=== PATIENT | male | born 1945 | race Caucasian/White ===

== ENCOUNTER 2020-01-10 14:54 | Emergency (ER) | payer OTHER, MEDICARE ==
[~2020-01-10] VITALS: Ht 170.2 cm; Wt 94.0 kg
[2020-01-10 15:13] VITALS: BP 134/72
[2020-01-10 15:51] LABS: BASOPHILS # (AUTO) 0.1 X10'3 (0-0.2); EOSINOPHILS # (AUTO) 0.6 X10'3 (0-0.9); EOSINOPHILS % (AUTO) 6.9 % (0-6); HEMATOCRIT 34.3 % (42.0-52.0); HEMOGLOBIN 11.5 g/dl (14.0-17.9); LYMPHOCYTES # (AUTO) 1.5 X10'3 (1.1-4.8); MEAN CORPUSCULAR HEMOGLOBIN 31.8 PG (27.0-31.0); MEAN CORPUSCULAR HGB CONC 33.4 g/dL (33.0-36.5); MEAN CORPUSCULAR VOLUME 95.2 FL (78-98); MEAN PLATELET VOLUME 7.4 FL (7.4-10.4); MONOCYTES # (AUTO) 0.7 X10'3 (0-0.9); MONOCYTES % (AUTO) 9.2 % (2-12); NEUTROPHILS # (AUTO) 5.3 X10'3 (1.8-7.7); NEUTROPHILS % (AUTO) 64.9 % (42-75); PLATELET COUNT 299 X10'3 (140-440); RED BLOOD COUNT 3.61 X10'6 (4.70-6.10); RED CELL DISTRIBUTION WIDTH 14.1 % (11.5-14.5); WHITE BLOOD COUNT 8.2 X10'3 (4.5-11.0)
[2020-01-10 16:09] LABS: ALANINE AMINOTRANSFERASE 25 U/L (12-78); ALBUMIN 3.7 G/DL (3.4-5.0); ALBUMIN/GLOBULIN RATIO 1.1 (1.1-1.5); ALKALINE PHOSPHATASE 96 IU/L (46-116); ANION GAP 7 (8-16); ASPARTATE AMINO TRANSFERASE 19 U/L (10-37); BILIRUBIN,TOTAL 0.3 MG/DL (0.1-1.0); BLOOD UREA NITROGEN 34 MG/DL (7-18); BUN/CREATININE RATIO 21.3 (5.4-32.0); CALCIUM 9.1 MG/DL (8.5-10.1); CHLORIDE 106 MMOL/L (99-107); GLUCOSE 85 MG/DL (70-104); POTASSIUM 4.4 MMOL/L (3.5-5.1); SODIUM 141 MMOL/L (135-145); TOTAL CARBON DIOXIDE 27.8 MMOL/L (24-32); TOTAL PROTEIN 7.2 G/DL (6.4-8.2); eGFR 42 ML/MIN
== END 2020-01-10 16:43 | disposition home or self-care (01) ==
LOC: ER 14:55
DX: R07.9 Chest pain, unspecified (principal)
CPT/HCPCS: 36415; 71045; 80053; 83880; 84484; 85025; 93005; 99285

== ENCOUNTER 2020-03-13 12:20 | Day surgery (SDC) | payer MEDICARE, OTHER ==
[2020-03-08 10:48] LABS: BASOPHILS # (AUTO) 0.1 X10'3 (0-0.2); BASOPHILS % (AUTO) 0.7 % (0-1); EOSINOPHILS # (AUTO) 0.3 X10'3 (0-0.9); HEMOGLOBIN 10.9 g/dl (14.0-17.9); LYMPHOCYTES # (AUTO) 1.3 X10'3 (1.1-4.8); LYMPHOCYTES % (AUTO) 16.1 % (21-51); MEAN CORPUSCULAR HEMOGLOBIN 31.4 PG (27.0-31.0); MEAN CORPUSCULAR HGB CONC 33.1 g/dL (33.0-36.5); MEAN CORPUSCULAR VOLUME 94.7 FL (78-98); MEAN PLATELET VOLUME 7.2 FL (7.4-10.4); MONOCYTES # (AUTO) 0.7 X10'3 (0-0.9); MONOCYTES % (AUTO) 9.3 % (2-12); NEUTROPHILS # (AUTO) 5.5 X10'3 (1.8-7.7); NEUTROPHILS % (AUTO) 69.9 % (42-75); PLATELET COUNT 290 X10'3 (140-440); RED BLOOD COUNT 3.48 X10'6 (4.70-6.10); WHITE BLOOD COUNT 7.9 X10'3 (4.5-11.0)
[2020-03-08 10:57] LABS: ALBUMIN 3.3 G/DL (3.4-5.0); ANION GAP 6 (8-16); BLOOD UREA NITROGEN 40 MG/DL (7-18); BUN/CREATININE RATIO 24.7 (5.4-32.0); CALCIUM 9.1 MG/DL (8.5-10.1); CHLORIDE 106 MMOL/L (99-107); CREATININE 1.62 MG/DL (0.60-1.10); GLUCOSE 103 MG/DL (70-104); POTASSIUM 4.8 MMOL/L (3.5-5.1); SODIUM 141 MMOL/L (135-145); TOTAL CARBON DIOXIDE 28.6 MMOL/L (24-32); eGFR 42 ML/MIN
[2020-03-08 11:00] LABS: PARTIAL THROMBOPLASTIN TIME 26 SECONDS (22-32)
[~2020-03-13] VITALS: Ht 170.2 cm; Wt 91.7 kg
[2020-03-13] VITALS (9 sets, daily range): BP systolic 120–167; BP diastolic 62–89
[2020-03-13] MEDS ORDERED: ASPI-1053 PO (12:42)
[2020-03-13] MEDS ORDERED: CHOL100025 PO (12:42)
[2020-03-13] MEDS ORDERED: METO25TA6 PO (12:42)
[2020-03-13] MEDS ORDERED: FAMO20TA8 PO (12:42)
[2020-03-13] MEDS ORDERED: CITA20TA28 PO (12:42)
[2020-03-13] MEDS ORDERED: SIMV-45 PO (12:42)
[2020-03-13] MEDS ORDERED: NITR0.4T51 SL (12:42)
[2020-03-13] MEDS ORDERED: [UNRECOGNIZED DRUG - OTHER] (12:42)
[2020-03-13] MEDS ORDERED: normal saline 1,000 ML IV SCH (12:45)
[2020-03-13] MEDS ORDERED: diphenhydrAMINE 25mg capsule PO PRN (12:45)
[2020-03-13] MEDS ORDERED: LORazepam 0.5 MG tablet PO PRN (12:45)
[2020-03-13] MEDS ORDERED: LIDOcaine/PRILOcaine 5gm cream TP ONE (12:45)
[2020-03-13] MEDS ORDERED: verapamil 2.5 mg/ml inj IV ONE (13:39)
[2020-03-13] MEDS ORDERED: fentaNYL/PF 50MCG/1 ML 2ML syringe ONE (13:40)
[2020-03-13] MEDS ORDERED: nitroGLYCERIN-Tridil 50MG/D5W 250 ML IV ONE (13:40)
[2020-03-13] MEDS ORDERED: LIDOcaine 1% (10mg/ml)w/preservative injection 20ml MDV ONE (13:40)
[2020-03-13] MEDS ORDERED: heparin 1,000unit/ml 10ml vial 10 ML ONE (13:40)
[2020-03-13] MEDS ORDERED: midazolam 2 mg/2 ml injection ONE (13:40)
[2020-03-13] MEDS ORDERED: iohexol 350MG/ML 100ml bottle IV ONE ×2 (13:40→14:51)
--- NOTE | 2020-03-13 15:42 | NUR ---
pt back in room. denies pain. vs stable as charted. pt requesting sandwich and soda. will continue to monitor.
[2020-03-13] MEDS ORDERED: ondansetron/PF 4mg/2ml inj IV PRN (15:55)
[2020-03-13] MEDS ORDERED: OXAZEpam 15mg capsule PO PRN (15:55)
[2020-03-13] MEDS ORDERED: nitroGLYCERIN 0.4mg SUBLingual tab SL PRN (15:55)
[2020-03-13] MEDS ORDERED: normal saline 1000ml 1,000 ML IV SCH (15:55)
[2020-03-13] MEDS ORDERED: proCHLORperazine 10 MG/2 ml inj IV PRN (15:55)
== END 2020-03-13 19:00 | disposition home or self-care (01) ==
LOC: SSTAY O 12:20
PROVIDERS: ATTEND Internal Medicine Interventional Cardiology
DX: R94.39 Abnormal result of other cardiovascular function study (principal); I25.119 Atherosclerotic heart disease of native coronary artery with unspecified angina pectoris; I10 Essential (primary) hypertension; D46.9 Myelodysplastic syndrome, unspecified; I48.92 Unspecified atrial flutter; D69.6 Thrombocytopenia, unspecified; Z85.46 Personal history of malignant neoplasm of prostate; Z98.890 Other specified postprocedural states; Z94.84 Stem cells transplant status; Z79.01 Long term (current) use of anticoagulants; Z79.899 Other long term (current) drug therapy
CPT/HCPCS: 36415; 80048; 85025; 85610; 85730; 92920; 93005; 93458; 99152; 99153; C1725; C1751; C1760; C1769; C1894; J1644; J2001; J2250; J3010; J7030; Q0163; Q9967; A4620; A5120; C9607; J3490

== ENCOUNTER 2020-03-26 14:08 | Day surgery (SDC) | payer MEDICARE, OTHER ==
[2020-03-22 12:10] LABS: BASOPHILS # (AUTO) 0.1 X10'3 (0-0.2); BASOPHILS % (AUTO) 0.6 % (0-1); EOSINOPHILS # (AUTO) 0.3 X10'3 (0-0.9); EOSINOPHILS % (AUTO) 3.5 % (0-6); HEMATOCRIT 33.8 % (42.0-52.0); HEMOGLOBIN 11.1 g/dl (14.0-17.9); LYMPHOCYTES # (AUTO) 1.1 X10'3 (1.1-4.8); LYMPHOCYTES % (AUTO) 12.7 % (21-51); MEAN CORPUSCULAR HEMOGLOBIN 31.6 PG (27.0-31.0); MEAN CORPUSCULAR VOLUME 95.7 FL (78-98); MEAN PLATELET VOLUME 8.2 FL (7.4-10.4); MONOCYTES # (AUTO) 0.7 X10'3 (0-0.9); MONOCYTES % (AUTO) 8.4 % (2-12); NEUTROPHILS # (AUTO) 6.6 X10'3 (1.8-7.7); NEUTROPHILS % (AUTO) 74.8 % (42-75); PLATELET COUNT 285 X10'3 (140-440); RED BLOOD COUNT 3.53 X10'6 (4.70-6.10); WHITE BLOOD COUNT 8.8 X10'3 (4.5-11.0)
[2020-03-22 12:21] LABS: ALBUMIN 3.5 G/DL (3.4-5.0); ANION GAP 6 (8-16); BLOOD UREA NITROGEN 37 MG/DL (7-18); BUN/CREATININE RATIO 19.8 (5.4-32.0); CALCIUM 9.3 MG/DL (8.5-10.1); CHLORIDE 107 MMOL/L (99-107); CREATININE 1.87 MG/DL (0.60-1.10); GLUCOSE 83 MG/DL (70-104); POTASSIUM 4.9 MMOL/L (3.5-5.1); SODIUM 142 MMOL/L (135-145); TOTAL CARBON DIOXIDE 28.6 MMOL/L (24-32); eGFR 35 ML/MIN
[2020-03-22 12:25] LABS: PARTIAL THROMBOPLASTIN TIME 26 SECONDS (22-32)
[~2020-03-26] VITALS: Ht 170.2 cm; Wt 93.8 kg
[2020-03-26] VITALS (8 sets, daily range): BP systolic 121–182; BP diastolic 63–91
[~2020-03-26 14:08] MED LIST: ASPI-1053 PO; CHOL100025 PO; CITA20TA28 PO; FAMO20TA8 PO; METO25TA6 PO; NITR0.4T51 SL; SIMV-45 PO; [UNRECOGNIZED DRUG - OTHER]
[2020-03-26] MEDS ORDERED: diphenhydrAMINE 25mg capsule PO PRN (14:30)
[2020-03-26] MEDS ORDERED: normal saline 1,000 ML IV SCH (14:30)
[2020-03-26] MEDS ORDERED: LORazepam 0.5 MG tablet PO PRN (14:30)
[2020-03-26] MEDS ORDERED: LIDOcaine/PRILOcaine 5gm cream TP ONE (14:30)
[2020-03-26] MEDS ORDERED: MULT-1085 PO (14:33)
[2020-03-26] MEDS ORDERED: LIDOcaine 1% (10mg/ml)w/preservative injection 20ml MDV ONE (16:23)
[2020-03-26] MEDS ORDERED: heparin 1,000 UNITS/NS 500ml 500 ML ONE (16:23)
[2020-03-26] MEDS ORDERED: fentaNYL/PF 50MCG/1 ML 2ML syringe ONE (16:23)
[2020-03-26] MEDS ORDERED: midazolam 2 mg/2 ml injection ONE (16:23)
[2020-03-26] MEDS ORDERED: heparin 1,000unit/ml 10ml vial 10 ML ONE (16:23)
[2020-03-26] MEDS ORDERED: iohexol 350 MG/1 ML 200ml bottle ONE (16:23)
== END 2020-03-26 20:30 | disposition home or self-care (01) ==
LOC: SSTAY O 14:08
PROVIDERS: ATTEND Internal Medicine Interventional Cardiology
DX: R94.39 Abnormal result of other cardiovascular function study (principal); I25.119 Atherosclerotic heart disease of native coronary artery with unspecified angina pectoris; I12.9 Hypertensive chronic kidney disease with stage 1 through stage 4 chronic kidney disease, or unspecified chronic kidney disease; N18.9 Chronic kidney disease, unspecified; I48.92 Unspecified atrial flutter; D46.9 Myelodysplastic syndrome, unspecified; E78.49 Other hyperlipidemia; Z79.01 Long term (current) use of anticoagulants; Z79.899 Other long term (current) drug therapy; Z85.46 Personal history of malignant neoplasm of prostate; Z94.84 Stem cells transplant status; Z95.5 Presence of coronary angioplasty implant and graft
CPT/HCPCS: 36415; 80048; 85025; 85610; 85730; 92920; 93005; 99152; 99153; C1725; C1751; C1760; C1769; J1644; J2001; J2250; J3010; J7030; Q0163; Q9967; A4620; A6258